=== PATIENT | female | born 1985 ===

== ENCOUNTER → 2025-08-01 10:30 | Outpatient (CLI) | payer OTHER, SELFPAY ==
[2025-08-01 17:03] LABS: Progesterone, Total 5.02 ng/mL
== END ==
PROVIDERS: Referring Provider Obstetrics & Gynecology; Visit Provider Obstetrics & Gynecology
DX: N97.9 Female infertility, unspecified (principal)
CPT/HCPCS: 36415; 84144

== ENCOUNTER → 2025-08-07 13:05 | Outpatient (CLI) | payer OTHER, SELFPAY ==
[2025-08-07 14:48] LABS: Follicle Stimulating Hormone 24.8 mIU/mL
[2025-08-07 15:02] LABS: Thyroid Stimulating Hormone 0.815 uIU/mL (0.47-4.68)
[2025-08-07 15:03] LABS: Estradiol, Total 22.2 pg/mL
== END ==
PROVIDERS: Referring Provider Obstetrics & Gynecology; Visit Provider Obstetrics & Gynecology
DX: N97.0 Female infertility associated with anovulation (principal)
CPT/HCPCS: 36415; 82397; 82670; 83001; 84146; 84443

== ENCOUNTER → 2025-08-08 16:03 | Outpatient (CLI) | payer OTHER, SELFPAY ==
--- NOTE | 2025-08-08 16:03 | DI.US.S_ITS ---
PROCEDURE: US PELVIC COMPLETE INDICATIONS: evaluate endometrial lining/ovaries TECHNIQUE: Real-time scanning was performed of the pelvic organs, with image documentation. Patient declined endovaginal imaging COMPARISON: None. FINDINGS: Uterus: 7.4 x 2.3 x 5.3 cm. The endometrium measures 4 mm. No focal lesion identified. Anteverted positioning. Ovaries: Nonenlarged ovaries, measuring 3 mL bilaterally. Other: Patient declined endovaginal imaging. IMPRESSION: Nonthickened endometrium. Nonenlarged ovaries. No significant endometrial or ovarian lesion identified on transabdominal images. Dictated by: Noah Nam M.D. on 08/08/2025 at 17:20 Approved by: Noah Nam M.D. on 08/08/2025 at 17:21
== END ==
LOC: US 16:03
PROVIDERS: Referring Provider Obstetrics & Gynecology; Visit Provider Obstetrics & Gynecology
DX: N97.9 Female infertility, unspecified (principal)
CPT/HCPCS: 76856